=== PATIENT | male | born 1945 | race Caucasian/White ===

== ENCOUNTER 2018-03-16 05:53 | Inpatient (IN) | payer MEDICARE ==
[~2018-03-16] VITALS: Ht 165.1 cm; Wt 85.0 kg
[~2018-03-16 05:53] MED LIST: ALLO100T PO; ASCO10007 PO; ASPI-1009 PO; ERGO400C PO; HYDR-565 PO; LOVA40TA76 PO; MULT-1085 PO; OMEP20CA10 PO; ONDA8TAB9 PO
[2018-03-16] MEDS ORDERED: piperacillin/tazo 3.375gm/50ml 50 ML IV ONE (06:05)
[2018-03-16] MEDS ORDERED: normal saline 1000ML IV soln IV ONE (06:05)
[2018-03-16 06:24] LABS: BASOPHILS # (AUTO) 0.1 X10'3 (0-0.2); BASOPHILS % (AUTO) 0.8 % (0-1); EOSINOPHILS # (AUTO) 0.3 X10'3 (0-0.9); EOSINOPHILS % (AUTO) 1.4 % (0-6); HEMATOCRIT 40.3 % (42.0-52.0); HEMOGLOBIN 13.7 g/dl (14.0-17.9); LYMPHOCYTES # (AUTO) 0.5 X10'3 (1.1-4.8); LYMPHOCYTES % (AUTO) 2.4 % (21-51); MEAN CORPUSCULAR HEMOGLOBIN 31.2 PG (27.0-31.0); MEAN CORPUSCULAR HGB CONC 33.9 % (33.0-36.5); MEAN CORPUSCULAR VOLUME 91.9 FL (78-98); MEAN PLATELET VOLUME 8.5 FL (7.4-10.4); MONOCYTES # (AUTO) 0.6 X10'3 (0-0.9); MONOCYTES % (AUTO) 3.1 % (2-12); NEUTROPHILS # (AUTO) 17.4 X10'3 (1.8-7.7); NEUTROPHILS % (AUTO) 92.3 % (42-75); PLATELET COUNT 126 X10'3 (140-440); RED BLOOD COUNT 4.38 X10'6 (4.70-6.10); WHITE BLOOD COUNT 18.8 X10'3 (4.5-11.0)
[2018-03-16 06:43] LABS: ALANINE AMINOTRANSFERASE 27 U/L (12-78); ALBUMIN 2.9 G/DL (3.4-5.0); ALBUMIN/GLOBULIN RATIO 0.7 (1.1-1.5); ALKALINE PHOSPHATASE 93 IU/L (46-116); ASPARTATE AMINO TRANSFERASE 21 U/L (10-37); BILIRUBIN,TOTAL 0.5 MG/DL (0.1-1.0); BLOOD UREA NITROGEN 11 MG/DL (7-18); BUN/CREATININE RATIO 10.1 (5.4-32.0); CALCIUM 8.7 MG/DL (8.5-10.1); CREATININE 1.09 MG/DL (0.60-1.10); GLUCOSE 232 MG/DL (70-104); MAGNESIUM 1.8 MG/DL (1.5-2.4); TOTAL CARBON DIOXIDE 24.6 MMOL/L (24-32); TOTAL PROTEIN 6.8 G/DL (6.4-8.2); eGFR 66 ML/MIN
[2018-03-16 06:46] LABS: ANION GAP 6 (8-16); CHLORIDE 101 MMOL/L (99-107); POTASSIUM 3.8 MMOL/L (3.5-5.1); SODIUM 132 MMOL/L (135-145)
[2018-03-16] MEDS ORDERED: ATOR80TA PO (06:46)
[2018-03-16] MEDS ORDERED: cefTAZidime inj 2 GM in normal saline 100ml IV soln 100 ML IV STA (06:51)
[2018-03-16 07:10] LABS: PLATELET ESTIMATE DECREASED; TOTAL CELLS COUNTED 100
[2018-03-16 07:12] LABS: ANISOCYTOSIS FEW; POLYCHROMASIA FEW
[2018-03-16 07:54] LABS: CLARITY,URINE CLEAR (Clear); COLOR,URINE YELLOW (Yellow); GLUCOSE, URINE 100 mg/dl (Neg); KETONES,URINE NEGATIVE (Neg); LEUKOCYTE ESTERASE ,URINE NEGATIVE (Neg); NITRITES, URINE NEGATIVE (Neg); OCCULT BLOOD,URINE TRACE-INTACT (Neg); PH,URINE 6.5 (4.8-8.0); PROTEIN,URINE TRACE mg/dl (Neg)
[2018-03-16 07:59] LABS: UA COLLECTION TYPE URINAL
[2018-03-16] MEDS ORDERED: magnesium 1gm/100ml D5W IVPB 100 ML IV PRN (08:00)
[2018-03-16] MEDS ORDERED: magnesium 4gm in 100ml NS 100 ML IV PRN (08:00)
[2018-03-16] MEDS ORDERED: potassium Cl 20 mEq SR tablet PO PRN (08:00)
[2018-03-16] MEDS ORDERED: magnesium Cl slow-release 64mg tablet PO PRN (08:00)
[2018-03-16] MEDS: K and/or MAG REPLACEMENT MC SCH (08:00)
[2018-03-16] MEDS ORDERED: potassium Cl 40MEQ/NS 500ml 500 ML IV PRN ×2 (08:00)
[2018-03-16] MEDS ORDERED: acetaminophen 325mg tablet PO PRN (08:00)
[2018-03-16 08:06] LABS: BACTERIA,URINE FEW /HPF (Neg); RBC,URINE 0-2 /HPF (0-2); SQUAMOUS EPITHELIAL CELL,UR FEW /LPF (FEW); WBC,URINE 0-4 /HPF (0-4)
[2018-03-16] MEDS: normal saline 1000ml 1,000 ML IV SCH ×2 (08:20→17:30)
[2018-03-16 09:15] VITALS: BP 157/81
[2018-03-16] MEDS ORDERED: HYDROcodone/acetaminophen 10/325mg tab PO PRN (13:20)
[2018-03-16] MEDS: ondansetron/PF 4mg/2ml inj IV PRN (14:06)
[2018-03-16] MEDS ORDERED: insulin Lispro (HumaLOG) vial - multi-dose SQ SCH ×2 (17:55)
[2018-03-16] MEDS ORDERED: dextrose 50%-water 50ml dispensing syringe IV PRN ×3 (17:55)
[2018-03-16] MEDS ORDERED: MESSAGE TO PHARMACY PO ONE (17:55)
[2018-03-16] MEDS ORDERED: glucagon, human recombinant 1mg kit SUBCUT PRN ×2 (17:55)
[2018-03-16] MEDS ORDERED: dextrose ORAL solution 15 GM/59 ML bottle PO PRN ×4 (17:55)
[2018-03-16 18:20] LABS: HEMOGLOBIN A1C 6.7 % (4.5-6.2)
[2018-03-16] MEDS: vancomycin inj 1,250 MG in normal saline 250ml IV soln 250 ML IV SCH (19:26)
[2018-03-16 20:00] VITALS: BP 155/73
[2018-03-16] MEDS ORDERED: vancomycin/NS 1 GM ADD-VANTAGE 250 ML IV SCH (20:00)
[2018-03-16] MEDS: insulin glargine (Lantus) pen - multi-dose SQ SCH (21:00)
[2018-03-16] MEDS ORDERED: insulin glargine (Lantus) pen - multi-dose SQ SCH (21:00)
[2018-03-16] MEDS ORDERED: morphine 4 MG/ML inj SYRINge IV PRN (21:05)
[2018-03-16] MEDS: piperacillin/tazo 3.375gm/50ml 50 ML IV SCH (21:13)
[2018-03-16 23:00] VITALS: BP 134/62
[2018-03-16] MEDS: HYDROcodone/acetaminophen 10/325mg tab PO PRN (23:46)
[2018-03-17] MEDS: piperacillin/tazo 3.375gm/50ml 50 ML IV SCH ×4 (01:56→20:55)
[2018-03-17] MEDS: normal saline 1000ml 1,000 ML IV SCH ×2 (04:39→13:56)
[2018-03-17 05:53] LABS: BASOPHILS % (AUTO) 0.1 % (0-1); EOSINOPHILS # (AUTO) 0.3 X10'3 (0-0.9); EOSINOPHILS % (AUTO) 2.4 % (0-6); HEMATOCRIT 39.1 % (42.0-52.0); LYMPHOCYTES # (AUTO) 0.8 X10'3 (1.1-4.8); LYMPHOCYTES % (AUTO) 5.6 % (21-51); MEAN CORPUSCULAR HEMOGLOBIN 30.8 PG (27.0-31.0); MEAN CORPUSCULAR HGB CONC 33.2 % (33.0-36.5); MEAN CORPUSCULAR VOLUME 92.7 FL (78-98); MEAN PLATELET VOLUME 9.2 FL (7.4-10.4); MONOCYTES # (AUTO) 0.7 X10'3 (0-0.9); MONOCYTES % (AUTO) 4.9 % (2-12); NEUTROPHILS # (AUTO) 11.7 X10'3 (1.8-7.7); PLATELET COUNT 142 X10'3 (140-440); RED BLOOD COUNT 4.22 X10'6 (4.70-6.10); RED CELL DISTRIBUTION WIDTH 15.5 % (11.5-14.5); WHITE BLOOD COUNT 13.4 X10'3 (4.5-11.0)
[2018-03-17 06:15] LABS: ALBUMIN 2.8 G/DL (3.4-5.0); ANION GAP 5 (8-16); BLOOD UREA NITROGEN 7 MG/DL (7-18); BUN/CREATININE RATIO 6.4 (5.4-32.0); CALCIUM 8.5 MG/DL (8.5-10.1); CHLORIDE 101 MMOL/L (99-107); CREATININE 1.09 MG/DL (0.60-1.10); GLUCOSE 115 MG/DL (70-104); MAGNESIUM 1.8 MG/DL (1.5-2.4); POTASSIUM 3.4 MMOL/L (3.5-5.1); SODIUM 134 MMOL/L (135-145); TOTAL CARBON DIOXIDE 28.5 MMOL/L (24-32); eGFR 66 ML/MIN
[2018-03-17 07:00] VITALS: BP 154/75
[2018-03-17] MEDS: vancomycin inj 1,250 MG in normal saline 250ml IV soln 250 ML IV SCH ×2 (07:25→18:48)
[2018-03-17] MEDS: K and/or MAG REPLACEMENT MC SCH (08:00)
[2018-03-17] MEDS: pantoprazole 40mg Tablet.DR PO SCH (08:00)
[2018-03-17] MEDS: allopurinol 300 MG tablet PO SCH (08:30)
[2018-03-17] MEDS: aspirin 81mg tablet.DR PO SCH (08:30)
[2018-03-17] MEDS: potassium Cl 20 mEq SR tablet PO PRN ×2 (08:31→14:22)
[2018-03-17] MEDS: ondansetron/PF 4mg/2ml inj IV PRN ×2 (08:31→19:59)
[2018-03-17] MEDS ORDERED: zolpidem 5mg tablet PO PRN ×2 (10:30→10:35)
[2018-03-17] MEDS: calamine LOTION TP SCH ×3 (11:47→20:55)
[2018-03-17] MEDS ORDERED: iohexol 300mg/ml 100ml inj. ONE (12:38)
[2018-03-17 12:55] LABS: C-REACTIVE PROTEIN 18.66 MG/DL (0.0-0.5)
[2018-03-17 20:00] VITALS: BP 150/70
[2018-03-17] MEDS: lactobacillus rhamnosus 10,000 MMU CELLS/CAPSULE PO SCH (20:55)
[2018-03-17] MEDS: insulin glargine (Lantus) pen - multi-dose SQ SCH (21:00)
[2018-03-17] MEDS ORDERED: atorvastatin 20mg tablet PO SCH (21:00)
[2018-03-17] MEDS ORDERED: Melatonin 3mg tablet PO SCH (21:00)
[2018-03-17 23:44] VITALS: BP 145/69
[2018-03-18] MEDS: piperacillin/tazo 3.375gm/50ml 50 ML IV SCH ×3 (02:34→12:29)
[2018-03-18] MEDS ORDERED: VANCOMYCIN LEVEL IV ONE (06:30)
[2018-03-18 07:00] VITALS: BP 163/79
[2018-03-18] MEDS: pantoprazole 40mg Tablet.DR PO SCH (07:04)
[2018-03-18] MEDS: vancomycin inj 1,250 MG in normal saline 250ml IV soln 250 ML IV SCH (07:17)
[2018-03-18 07:41] LABS: BASOPHILS % (AUTO) 0.1 % (0-1); EOSINOPHILS # (AUTO) 0.4 X10'3 (0-0.9); HEMATOCRIT 38.7 % (42.0-52.0); HEMOGLOBIN 13.1 g/dl (14.0-17.9); LYMPHOCYTES # (AUTO) 0.9 X10'3 (1.1-4.8); LYMPHOCYTES % (AUTO) 10.1 % (21-51); MEAN CORPUSCULAR HEMOGLOBIN 30.8 PG (27.0-31.0); MEAN CORPUSCULAR HGB CONC 33.7 % (33.0-36.5); MEAN CORPUSCULAR VOLUME 91.3 FL (78-98); MEAN PLATELET VOLUME 8.6 FL (7.4-10.4); MONOCYTES # (AUTO) 0.6 X10'3 (0-0.9); MONOCYTES % (AUTO) 6.4 % (2-12); NEUTROPHILS # (AUTO) 6.9 X10'3 (1.8-7.7); NEUTROPHILS % (AUTO) 79.4 % (42-75); PLATELET COUNT 172 X10'3 (140-440); RED BLOOD COUNT 4.24 X10'6 (4.70-6.10); RED CELL DISTRIBUTION WIDTH 15.4 % (11.5-14.5); WHITE BLOOD COUNT 8.7 X10'3 (4.5-11.0)
[2018-03-18 07:58] LABS: ALBUMIN 2.9 G/DL (3.4-5.0); ANION GAP 8 (8-16); BLOOD UREA NITROGEN 7 MG/DL (7-18); BUN/CREATININE RATIO 6.7 (5.4-32.0); CHLORIDE 102 MMOL/L (99-107); CREATININE 1.05 MG/DL (0.60-1.10); GLUCOSE 104 MG/DL (70-104); MAGNESIUM 2.1 MG/DL (1.5-2.4); POTASSIUM 3.8 MMOL/L (3.5-5.1); SODIUM 138 MMOL/L (135-145); eGFR 69 ML/MIN
[2018-03-18 07:59] LABS: VANCOMYCIN,TROUGH 8.9 UG/ML (6.0-14.0)
[2018-03-18] MEDS: calamine LOTION TP SCH (08:00)
[2018-03-18] MEDS ORDERED: ascorbic acid 500mg tablet PO SCH (08:00)
[2018-03-18] MEDS: K and/or MAG REPLACEMENT MC SCH (08:00)
[2018-03-18] MEDS ORDERED: multivitamins, therapeutics tablet PO SCH (08:00)
[2018-03-18] MEDS: aspirin 81mg tablet.DR PO SCH (08:50)
[2018-03-18] MEDS: allopurinol 300 MG tablet PO SCH (08:50)
[2018-03-18] MEDS: lactobacillus rhamnosus 10,000 MMU CELLS/CAPSULE PO SCH (08:50)
[2018-03-18] MEDS ORDERED: lisinopril 20mg tablet PO SCH (09:50)
[2018-03-18] MEDS ORDERED: LACT1CAP26 PO (10:52)
[2018-03-18] MEDS ORDERED: LISI-600 PO (10:52)
[2018-03-18] MEDS ORDERED: MELA3TAB PO (10:52)
[2018-03-18] MEDS ORDERED: CLIN150C2 PO (10:52)
[2018-03-18] MEDS: HYDROcodone/acetaminophen 10/325mg tab PO PRN (11:17)
[2018-03-18 12:20] VITALS: BP 160/78
[2018-03-18] MEDS ORDERED: vancomycin 1500mg/300ml PREMIX 250 ML IV SCH (19:00)
[2018-03-20] MEDS ORDERED: VANCOMYCIN LEVEL IV ONE (06:30)
== END 2018-03-18 14:00 | disposition home or self-care (01) | DRG 872 ==
LOC: ER 05:54 → ED HOLD 07:56 → EDBEDREQ 08:51 → SUR 3N 09:10
PROVIDERS: ADMIT Internal Medicine; ATTEND Family Medicine
PROC: BN251ZZ Computerized Tomography (CT Scan) of Facial Bones using Low Osmolar Contrast (ICD-10-PCS; principal; 2018-03-17)
DX: A41.9 Sepsis, unspecified organism (principal); L03.211 Cellulitis of face; H60.21 Malignant otitis externa, right ear; H61.001 Unspecified perichondritis of right external ear; E11.9 Type 2 diabetes mellitus without complications; E78.5 Hyperlipidemia, unspecified; D72.810 Lymphocytopenia; E87.6 Hypokalemia; M94.8X8 Other specified disorders of cartilage, other site; G47.00 Insomnia, unspecified; M10.9 Gout, unspecified; I10 Essential (primary) hypertension; I25.10 Atherosclerotic heart disease of native coronary artery without angina pectoris; K21.9 Gastro-esophageal reflux disease without esophagitis; Z98.61 Coronary angioplasty status; Z79.82 Long term (current) use of aspirin; Z79.899 Other long term (current) drug therapy; Z85.72 Personal history of non-Hodgkin lymphomas; Z92.21 Personal history of antineoplastic chemotherapy
CPT/HCPCS: 36415; 70487; 80048; 80053; 80202; 81001; 82948; 83036; 83605; 83735; 84145; 85025; 85651; 86140; 87040; 87070; 93005; 96365; 96367; 99285; A6258; J0713; J1815; J2405; J2543; J3370; J7030; Q9967

== ENCOUNTER 2018-11-05 08:30 | Outpatient (CLI) | payer MEDICARE ==
[~2018-11-05 08:30] MED LIST changes: +ATOR80TA PO; -HYDR-565 PO; +LACT1CAP26 PO; +LISI-600 PO; -LOVA40TA76 PO; +MELA3TAB PO; -ONDA8TAB9 PO
== END 2018-11-05 23:59 | disposition home or self-care (01) ==
LOC: VAS 08:30
PROVIDERS: ATTEND Family Medicine
DX: M79.662 Pain in left lower leg (principal); Z98.890 Other specified postprocedural states; Z87.891 Personal history of nicotine dependence; Z85.72 Personal history of non-Hodgkin lymphomas
CPT/HCPCS: 93971

== ENCOUNTER 2022-04-20 16:13 | Inpatient (IN) | payer MEDICARE ==
[~2022-04-20] VITALS: Ht 165.1 cm; Wt 165.0 kg
[~2022-04-20 16:13] MED LIST changes: +ASCO100031 PO; -ASCO10007 PO; +FER325T PO; +HYDR-3965 PO; -LACT1CAP26 PO; -LISI-600 PO; +LOP12.5T PO; -MELA3TAB PO; +METF-1203 PO; -OMEP20CA10 PO; +OMEP20CA15 PO; +ZOLP10TA PO
[2022-04-20] MEDS ORDERED: amiodarone 150mg/dext, iso-os 100 ML IV ONE (16:45)
[2022-04-20 16:59] LABS: BASOPHILS # (AUTO) 0.1 X10'3 (0-0.2); BASOPHILS % (AUTO) 0.4 % (0-1); EOSINOPHILS # (AUTO) 0.5 X10'3 (0-0.9); EOSINOPHILS % (AUTO) 3.9 % (0-6); HEMATOCRIT 33.2 % (42.0-52.0); LYMPHOCYTES # (AUTO) 0.9 X10'3 (1.1-4.8); LYMPHOCYTES % (AUTO) 7.3 % (21-51); MEAN CORPUSCULAR HEMOGLOBIN 30.8 PG (27.0-31.0); MEAN CORPUSCULAR HGB CONC 33.2 g/dL (33.0-36.5); MEAN CORPUSCULAR VOLUME 92.8 FL (78-98); MEAN PLATELET VOLUME 9.5 FL (7.4-10.4); MONOCYTES # (AUTO) 1.1 X10'3 (0-0.9); MONOCYTES % (AUTO) 8.4 % (2-12); NEUTROPHILS # (AUTO) 10.2 X10'3 (1.8-7.7); PLATELET COUNT 206 X10'3 (140-440); RED BLOOD COUNT 3.58 X10'6 (4.70-6.10); RED CELL DISTRIBUTION WIDTH 14.8 % (11.5-14.5); WHITE BLOOD COUNT 12.8 X10'3 (4.5-11.0)
[2022-04-20 17:11] LABS: ALANINE AMINOTRANSFERASE 41 U/L (12-78); ALBUMIN 3.7 G/DL (3.4-5.0); ALKALINE PHOSPHATASE 70 IU/L (46-116); ANION GAP 8 (8-16); ASPARTATE AMINO TRANSFERASE 31 U/L (10-37); BILIRUBIN,TOTAL 0.5 MG/DL (0.1-1.0); BLOOD UREA NITROGEN 14 MG/DL (7-18); BUN/CREATININE RATIO 14.7 (5.4-32.0); CHLORIDE 103 MMOL/L (99-107); CREATININE 0.95 MG/DL (0.60-1.10); GLUCOSE 237 MG/DL (70-104); POTASSIUM 4.1 MMOL/L (3.5-5.1); SODIUM 138 MMOL/L (135-145); TOTAL CARBON DIOXIDE 26.9 MMOL/L (24-32); TOTAL PROTEIN 7.4 G/DL (6.4-8.2); eGFR 77 ML/MIN
[2022-04-20] MEDS: amiodarone/D5 360MG/200ML BAG 200 ML IV SCH ×2 (17:33→23:57)
[2022-04-20] MEDS ORDERED: DEXTROSE 15 GM of carb/4 tabs (each vial/BOTTLE has 4 tablets) PO PRN ×2 (17:50)
[2022-04-20] MEDS ORDERED: MESSAGE TO PHARMACY PO ONE (17:50)
[2022-04-20] MEDS ORDERED: PERFLUTREN PROTEIN-A MICROSPHR (Optison) 0.22 MG/ML 3ML VIAL IV ONE (17:50)
[2022-04-20] MEDS ORDERED: POTASSIUM BICARB 20meq eff tab 20 MEQ TABLET.EFF PO PRN ×2 (17:50)
[2022-04-20] MEDS ORDERED: glucagon, human recombinant 1mg kit SUBCUT PRN (17:50)
[2022-04-20] MEDS ORDERED: amiodarone/D5 360MG/200ML BAG 200 ML IV SCH (17:50)
[2022-04-20] MEDS ORDERED: dextrose 50%-water 50ml dispensing syringe IV PRN ×2 (17:50)
[2022-04-20] MEDS ORDERED: magnesium 2GM in 50ml NS 50 ML IV PRN (17:50)
[2022-04-20] MEDS ORDERED: acetaminophen 325mg tablet PO PRN (17:50)
[2022-04-20] MEDS ORDERED: magnesium 4gm in 100ml NS 100 ML IV PRN (17:50)
[2022-04-20] MEDS ORDERED: mag hydrox/Alum hydrox/simeth 30ml oral suspension PO PRN (17:50)
[2022-04-20] MEDS ORDERED: ondansetron/PF 4mg/2ml inj IV PRN (17:50)
[2022-04-20] MEDS ORDERED: insulin Lispro (HumaLOG) vial - multi-dose SQ SCH (17:50)
[2022-04-20] MEDS ORDERED: potassium CL 10mEq/100ml bag 100 ML IV PRN (17:50)
[2022-04-20] MEDS ORDERED: temazepam 15mg capsule PO PRN (18:00)
[2022-04-20] MEDS ORDERED: CHOL100046 PO (18:11)
[2022-04-20] MEDS ORDERED: HYDR-3964 PO (18:11)
[2022-04-20] MEDS ORDERED: ALLO300T35 PO (18:11)
[2022-04-20] MEDS ORDERED: METO25TA6 PO (18:14)
[2022-04-20] MEDS ORDERED: METF-436 PO (18:14)
[2022-04-20] MEDS ORDERED: HYDROcodone/acetaminophen 5mg/325mg tablet PO PRN (18:45)
[2022-04-20] MEDS ORDERED: zolpidem 5mg tablet PO PRN (18:45)
[2022-04-20] MEDS: K and/or MAG REPLACEMENT MC SCH (20:00)
[2022-04-20] MEDS ORDERED: naproxen sodium 220mg tablet PO SCH (20:00)
[2022-04-20] MEDS: docusate sod 100mg capsule PO SCH (20:18)
[2022-04-20] MEDS: enoxaparin 40mg/0.4ml syringe SQ SCH (20:19)
[2022-04-20] MEDS: metoprolol tartrate 25mg tablet PO SCH (20:19)
[2022-04-20] MEDS: atorvastatin 20mg tablet PO SCH (20:19)
[2022-04-20 20:38] LABS: HEMOGLOBIN A1C 6.6 % (4.5-6.2)
[2022-04-20] MEDS: insulin glargine (Lantus) pen - multi-dose SQ SCH (21:00)
[2022-04-21 03:54] VITALS: BP 133/78
[2022-04-21 06:00] VITALS: BP 131/66
[2022-04-21 07:43] LABS: BASOPHILS % (AUTO) 0.4 % (0-1); EOSINOPHILS # (AUTO) 0.6 X10'3 (0-0.9); EOSINOPHILS % (AUTO) 5.8 % (0-6); HEMATOCRIT 28.9 % (42.0-52.0); HEMOGLOBIN 9.7 g/dl (14.0-17.9); LYMPHOCYTES # (AUTO) 0.9 X10'3 (1.1-4.8); MEAN CORPUSCULAR HEMOGLOBIN 30.9 PG (27.0-31.0); MEAN CORPUSCULAR HGB CONC 33.8 g/dL (33.0-36.5); MEAN CORPUSCULAR VOLUME 91.6 FL (78-98); MONOCYTES # (AUTO) 0.8 X10'3 (0-0.9); MONOCYTES % (AUTO) 8.1 % (2-12); NEUTROPHILS # (AUTO) 7.8 X10'3 (1.8-7.7); NEUTROPHILS % (AUTO) 76.7 % (42-75); PLATELET COUNT 177 X10'3 (140-440); RED BLOOD COUNT 3.15 X10'6 (4.70-6.10); RED CELL DISTRIBUTION WIDTH 14.8 % (11.5-14.5); WHITE BLOOD COUNT 10.2 X10'3 (4.5-11.0)
[2022-04-21] MEDS ORDERED: multivitamins, therapeutics tablet PO SCH (08:00)
[2022-04-21] MEDS ORDERED: allopurinol 300 MG tablet PO SCH (08:00)
[2022-04-21] MEDS: K and/or MAG REPLACEMENT MC SCH ×2 (08:00→20:00)
[2022-04-21 08:08] LABS: ALANINE AMINOTRANSFERASE 34 U/L (12-78); ALBUMIN 3.2 G/DL (3.4-5.0); ALKALINE PHOSPHATASE 60 IU/L (46-116); ANION GAP 9 (8-16); ASPARTATE AMINO TRANSFERASE 23 U/L (10-37); BILIRUBIN,TOTAL 0.5 MG/DL (0.1-1.0); BLOOD UREA NITROGEN 13 MG/DL (7-18); BUN/CREATININE RATIO 16.3 (5.4-32.0); CALCIUM 8.7 MG/DL (8.5-10.1); CHLORIDE 102 MMOL/L (99-107); GLUCOSE 138 MG/DL (70-104); MAGNESIUM 2.1 MG/DL (1.5-2.4); POTASSIUM 4.1 MMOL/L (3.5-5.1); SODIUM 139 MMOL/L (135-145); TOTAL CARBON DIOXIDE 27.9 MMOL/L (24-32); TOTAL PROTEIN 6.4 G/DL (6.4-8.2); eGFR > 90 ML/MIN
[2022-04-21] MEDS: docusate sod 100mg capsule PO SCH ×2 (09:07→20:00)
[2022-04-21] MEDS: metoprolol tartrate 25mg tablet PO SCH ×2 (09:20→20:00)
[2022-04-21] MEDS: ascorbic acid 500mg tablet PO SCH (09:21)
[2022-04-21] MEDS: aspirin 81mg, enteric-coated 1 TAB TABLET.DR PO SCH (09:21)
[2022-04-21] MEDS: ferrous sulfate 325mg tablet PO SCH ×2 (09:21→17:37)
[2022-04-21] MEDS: amiodarone 200mg tablet PO SCH ×2 (09:21→20:00)
[2022-04-21] MEDS: pantoprazole 40mg Tablet.DR PO SCH (09:22)
[2022-04-21] MEDS: allopurinol 300 MG tablet PO SCH (09:22)
[2022-04-21] MEDS ORDERED: naproxen 500mg tablet PO SCH (09:26)
[2022-04-21 11:00] VITALS: BP 128/70
--- NOTE | 2022-04-21 13:00 | NUR ---
Pt. ate a late breakfast completed it around 11:00. He then started eating lunch prior to his blood glucose check. The blood sugar is not accurate and can not be covered with insulin for the lunch time assessment.
[2022-04-21 15:00] VITALS: BP 117/93
[2022-04-21] MEDS: naproxen 500mg tablet PO SCH (17:37)
[2022-04-21 18:00] VITALS: BP 115/61
--- NOTE | 2022-04-21 19:32 | NUR ---
Patient in room U 3009. I have received report from Mariana VIVAR and had the opportunity to ask questions and assume patient care. Pt sitting luis fowlers in bed finishing eating dinner. Pt declines any c/o pain. Pt on RA. No s/s of distress. Pt has heart pillow on lap. Pt states he knows how to abide by sternal precautions. BLL, call light within reach, frequently used items in reach, frequent rounding, handkerchief presser socks on. [facility]
[2022-04-21] MEDS: enoxaparin 40mg/0.4ml syringe SQ SCH (20:00)
[2022-04-21] MEDS ORDERED: apixaban 5mg tablet PO SCH (20:00)
[2022-04-21] MEDS: insulin glargine (Lantus) pen - multi-dose SQ SCH (21:00)
[2022-04-21] MEDS: atorvastatin 20mg tablet PO SCH (21:51)
[2022-04-21 22:00] VITALS: BP 120/60
[2022-04-22 06:00] VITALS: BP 138/74
--- NOTE | 2022-04-22 07:07 | NUR ---
Problems reprioritized. Patient report given, questions answered & plan of care reviewed with Mariana VIVAR.
[2022-04-22 09:10] LABS: BASOPHILS # (AUTO) 0.1 X10'3 (0-0.2); BASOPHILS % (AUTO) 0.5 % (0-1); EOSINOPHILS # (AUTO) 0.8 X10'3 (0-0.9); EOSINOPHILS % (AUTO) 6.8 % (0-6); HEMATOCRIT 33.6 % (42.0-52.0); HEMOGLOBIN 11.1 g/dl (14.0-17.9); LYMPHOCYTES # (AUTO) 1.1 X10'3 (1.1-4.8); LYMPHOCYTES % (AUTO) 9.6 % (21-51); MEAN CORPUSCULAR HEMOGLOBIN 30.6 PG (27.0-31.0); MEAN CORPUSCULAR HGB CONC 32.9 g/dL (33.0-36.5); MONOCYTES # (AUTO) 0.7 X10'3 (0-0.9); MONOCYTES % (AUTO) 5.7 % (2-12); NEUTROPHILS % (AUTO) 77.4 % (42-75); PLATELET COUNT 231 X10'3 (140-440); RED BLOOD COUNT 3.61 X10'6 (4.70-6.10); RED CELL DISTRIBUTION WIDTH 14.7 % (11.5-14.5); WHITE BLOOD COUNT 11.6 X10'3 (4.5-11.0)
[2022-04-22 09:27] LABS: ALANINE AMINOTRANSFERASE 41 U/L (12-78); ALBUMIN 3.6 G/DL (3.4-5.0); ALKALINE PHOSPHATASE 75 IU/L (46-116); ANION GAP 11 (8-16); ASPARTATE AMINO TRANSFERASE 28 U/L (10-37); BILIRUBIN,TOTAL 0.5 MG/DL (0.1-1.0); BLOOD UREA NITROGEN 14 MG/DL (7-18); BUN/CREATININE RATIO 14.6 (5.4-32.0); CALCIUM 9.3 MG/DL (8.5-10.1); CHLORIDE 100 MMOL/L (99-107); CREATININE 0.96 MG/DL (0.60-1.10); GLUCOSE 196 MG/DL (70-104); MAGNESIUM 2.2 MG/DL (1.5-2.4); POTASSIUM 4.2 MMOL/L (3.5-5.1); SODIUM 138 MMOL/L (135-145); TOTAL CARBON DIOXIDE 26.6 MMOL/L (24-32); TOTAL PROTEIN 7.2 G/DL (6.4-8.2); eGFR 76 ML/MIN
[2022-04-22 09:33] VITALS: BP_SYST 120
[2022-04-22] MEDS: naproxen 500mg tablet PO SCH (09:33)
[2022-04-22] MEDS: metoprolol tartrate 25mg tablet PO SCH (09:33)
[2022-04-22] MEDS: pantoprazole 40mg Tablet.DR PO SCH (09:34)
[2022-04-22] MEDS: ferrous sulfate 325mg tablet PO SCH (09:34)
[2022-04-22] MEDS: ascorbic acid 500mg tablet PO SCH (09:34)
[2022-04-22] MEDS: amiodarone 200mg tablet PO SCH (09:35)
[2022-04-22] MEDS: atorvastatin 20mg tablet PO SCH (09:35)
[2022-04-22] MEDS: aspirin 81mg, enteric-coated 1 TAB TABLET.DR PO SCH (09:35)
[2022-04-22] MEDS: allopurinol 300 MG tablet PO SCH (09:35)
[2022-04-22] MEDS: docusate sod 100mg capsule PO SCH (09:36)
[2022-04-22] MEDS ORDERED: APIX5TAB3 PO (10:26)
[2022-04-22] MEDS ORDERED: AMIO200T67 PO (10:26)
--- NOTE | 2022-04-22 11:00 | NUR ---
Discharge instructions are provided. new medications are reviewed. IV is discontinued and site is without difficulties. Mid sternal incision care and protection instructions. Questions answered to the Pt's satisfaction. Discharged to home with his spouses support.
== END 2022-04-22 11:10 | disposition home or self-care (01) | DRG 282 ==
LOC: ER 16:15 → ED HOLD 17:55 → PCU 3S 04-21 00:45
PROVIDERS: ADMIT Family Medicine; ATTEND Family Medicine
DX: I48.91 Unspecified atrial fibrillation (principal); I21.A1 Myocardial infarction type 2; D64.9 Anemia, unspecified; E11.9 Type 2 diabetes mellitus without complications; E78.00 Pure hypercholesterolemia, unspecified; D72.823 Leukemoid reaction; I10 Essential (primary) hypertension; M10.9 Gout, unspecified; Z79.82 Long term (current) use of aspirin; I25.10 Atherosclerotic heart disease of native coronary artery without angina pectoris; Z79.01 Long term (current) use of anticoagulants; Z79.84 Long term (current) use of oral hypoglycemic drugs; Z79.899 Other long term (current) drug therapy; Z95.1 Presence of aortocoronary bypass graft; Z95.2 Presence of prosthetic heart valve; Z98.61 Coronary angioplasty status; Z82.49 Family history of ischemic heart disease and other diseases of the circulatory system; Z87.891 Personal history of nicotine dependence; Z85.72 Personal history of non-Hodgkin lymphomas
CPT/HCPCS: 36415; 71045; 80053; 82948; 83036; 83735; 83880; 84484; 85025; 87081; 93005; 93306; 96365; 96368; 99285; G0378; J0282; J1650; J1815; J7042

== ENCOUNTER 2022-11-02 08:50 | Outpatient (CLI) | payer MEDICARE ==
[~2022-11-02 08:50] MED LIST changes: -ALLO100T PO; +ALLO300T35 PO; +AMIO200T67 PO; +APIX5TAB3 PO; +CHOL100046 PO; -ERGO400C PO; +HYDR-3964 PO; -HYDR-3965 PO; -LOP12.5T PO; -METF-1203 PO; +METF-436 PO; +METO25TA6 PO
== END 2022-11-02 23:59 | disposition home or self-care (01) ==
LOC: CARD DIAG 08:50
PROVIDERS: ATTEND Internal Medicine Cardiovascular Disease
DX: I34.0 Nonrheumatic mitral (valve) insufficiency (principal); I34.81 Nonrheumatic mitral (valve) annulus calcification; Z95.2 Presence of prosthetic heart valve
CPT/HCPCS: 93306

== ENCOUNTER 2024-05-14 09:08 | Outpatient (CLI) | payer MEDICARE | END 2024-05-14 23:59 | disposition home or self-care (01) | LOC: MRI02 09:08 | PROVIDERS: ATTEND Student in an Organized Health Care Education/Training Program | DX: M19.011 Primary osteoarthritis, right shoulder (principal); M25.511 Pain in right shoulder; M62.58 Muscle wasting and atrophy, not elsewhere classified, other site | CPT/HCPCS: 73221 ==